=== PATIENT | male | born 1960 | race Two or more races ===

== ENCOUNTER 2024-06-14 17:56 | Emergency (ER) | payer SELFPAY ==
[2024-06-14 18:23] VITALS: BP 171/90; PULSE 71; RESP 18; TEMP 37.1; O2SAT 95; BMI 25.1
--- NOTE | 2024-06-14 18:30 | XR_ITS ---
Examination: CT cervical spine without contrast 2-D sagittal reconstructions 2-D coronal reconstructions 3-D reconstructions. Exam date and time:June 14, 2024, 1915 hrs. Indications: Patient fell today with into the neck, neck pain CTDI:vol (mGy) 4.75 DLP: (mGycm) 152 Technique: Multiple 2 mm axial sections of the cervical spine have been obtained. The coronal and sagittal reconstructions have been obtained. 3-D reconstructions have been obtained. Low dose protocols were performed. One or more of the following dose reduction techniques were used; automated exposure control, adjustment of the mA and/or KV according to patient size, use of iterative reconstruction technique. Findings: Axial sections demonstrate intact base of the skull. C1 exhibit satisfactory relationship to the odontoid. No acute cervical vertebral body fracture seen. Alignment posterior spinous processes satisfactory. Impression: No acute cervical fracture.
--- NOTE | 2024-06-14 18:30 | XR_ITS ---
Examination: CT brain head without contrast. 2-D sagittal coronal reconstructions Date and time of exam:June 14, 2024 at 1915 hrs. Indications: Patient fell today with injury to the head, head pain CTDI: vol (mGy):48 DLP: (mGycm):970 Technique: Multiple CT axial sections of the brain have been obtained, 5 mm slice thickness. Contrast has not been administered. 2-D sagittal, coronal reconstructions have been obtained Low dose protocols were performed. One or more of the following dose reduction techniques were used; automated exposure control, adjustment of the mA and/or KV according to patient size, use of iterative reconstruction technique. Findings: No significant ventricular enlargement. Intra-axial or extra-axial hemorrhage density is not seen. No mass effect or midline shift Basal cisterns are not remarkable. Fourth ventricle is midline. Cranial vault intact. Impression: Negative for acute hemorrhage, mass effect or midline shift
--- NOTE | 2024-06-14 18:35 | PD.EDHEAD ---
ED Head Injury RME/HPI General Chief complaint: Wound/Laceration Stated complaint: LACERATION BACK OF HEAD Time Seen by Provider: 06/14/24 18:30 Arrival date/time: 06/14/24 17:56 63M with no significant PMH presents to ED with head lac after trip slip and fall in shower. Patient has been drinking, but denies N/V, vision changes, weakness, and slurred speech. Patient has not had a tetanus shot in the past 5 years. Limitations: no limitations Related Data Allergies Allergy/AdvReac Type Severity Reaction Status Date / Time No Known Allergies Allergy Verified 06/14/24 17:59 Review of Systems Review of Systems Systems Reviewed: All systems reviewed, normal except as documented Constitutional Constitutional: Reports system reviewed and no additional complaints, except as documented, Reports as per HPI, Denies fever(s) and Reports headache(s) (pain) ENT Ears, Nose, Mouth, and Throat: Denies disequilibrium and Reports headache(s) (pain) Cardiovascular Cardiovascular: Reports system reviewed and no additional complaints, except as documented, Denies chest pain and Denies dyspnea Respiratory Respiratory: Reports system reviewed and no additional complaints, except as documented, Denies cough and Denies dyspnea Gastrointestinal Gastrointestinal: Reports system reviewed and no additional complaints, except as documented, Denies abdominal pain, Denies nausea and Denies vomiting Integumentary/Breasts Skin/Breast: Reports as per HPI and Reports skin pain Neurologic Neurologic: Reports system reviewed and no additional complaints, except as documented, Denies confusion, Denies disequilibrium and Reports headache(s) (pain) Psychiatric Psychiatric: Denies confusion Past Medical History Social History SMOKING STATUS: Former smoker ED Exam General Limitations: Present no limitations General appearance: Present alert and in no apparent distress Expanded Head Exam Head exam physical: Present laceration (4 cm posterior scalp) Eye Eye exam: Present normal appearance, PERRL and EOMI ENT ENT exam: Present normal exam, normal oropharynx and mucous membranes moist Neck Neck exam: Present normal inspection, full ROM and trachea midline Chest Chest inspection: Present normal inspection and symmetric chest wall rise Respiratory Respiratory exam: Present normal lung sounds bilaterally Cardiovascular Cardiovascular exam: Present regular rate, normal rhythm and normal heart sounds Abdominal Exam Abdominal exam: Present soft and normal bowel sounds Extremities Exam Extremities exam: Present normal inspection and full ROM Back Exam Back exam: Present normal inspection and full ROM Neurological Exam Neurological exam: Present alert, oriented X3 and CN II-XII intact Psychiatric Psychiatric exam: Present normal affect and normal mood Skin Skin exam: Present warm, dry, intact and normal color Course Quality Measures none Orders Category Date Time Status Stapler to Beside ONCE Care 06/14/24 18:30 Completed Wound Care NOW Care 06/14/24 18:[address] cervical spine wo con Stat Exams 06/14/24 18:[address] head/brain wo con Stat Exams 06/14/24 18:30 Completed Tet,Diphth,Pertuss(Acell)-Tdap [Boostrix Vacc] Med 06/14/24 18:30 Discontinued 0.5 ml IMI .ONCE ONE Vital Signs Vital signs: Vital Signs Temperature 98.7 F 06/14/24 18:23 Pulse Rate 71 06/14/24 18:23 Respiratory Rate 18 06/14/24 18:23 Blood Pressure 171/90 H 06/14/24 18:23 Pulse Oximetry (%) 95 06/14/24 18:23 Oxygen Delivery Method Room Air 06/14/24 18:23 O2 at 95% on RA and WNLs Head Injury MDM Narrative MDM Narrative:: 63M with no significant PMH presents to ED with head lac after trip slip and fall in shower. Patient has been drinking, but denies N/V, vision changes, weakness, and slurred speech. Patient has not had a tetanus shot in the past 5 years. Physical exam reveals 4 cm lac posterior scalp. Normal pupil response and EOM. Mildly dilated. ENT clear. No neck tenderness. ROM intact. Gait intact. Patient is afebrile, calm, but mildly intoxicated. Wound cleaned/irrigated and closed with 12 agustin. Given counseling director to have them removed in about [address] unremarkable. Patient data External records reviewed:: None Clinical information provided by:: patient Social determinants that could affect healthcare access:: alcohol use Patient has the following chronic illnesses:: HTN How is presenting disease/condition affected by chronic disease/condition?: uneffected by Evaluation data The following diagnostics were reviewed and interpreted by me:: radiology exam(s) Lab and/or radiology exams considered but not ordered:: ordered Interpretation Summary: above Medications / Prescriptions Medications or Prescriptions considered but not ordered:: ordered Medication administrations:: Medication Administration History Discontinued Medications Diphtheria/Tetanus/Acell Pertussis (Diphth,Pertuss(Acell),Tet Vac 0.5 Ml Syr- Adult) 0.5 ml IMi .ONCE ONE Stop: 06/14/24 18:31 Last Admin: 06/14/24 20:25 Dose: 0.5 ml Documented By: KF above Consultations Consultation(s) initiated? (list below): No Diagnosis Differential diagnosis head injury: concussion without loss of consciousness, epidural hematoma, closed head injury, subarachnoid hematoma, postconcussion syndrome, subdural hematoma, concussion with loss of consciousness and other (cervical fx) Most likely diagnosis given after review of the tests above:: laceration and CHI Admission Indicated Admission indicated?: not indicated Admission Request Was there a request for admission?: No Disposition Plan Disposition Plan: Discharge Discharge Attestation Discharge Attestation: The patient and all family members were given an opportunity to ask questions and understood the discharge instructions. Discharge instructions specifically effects, indications for sooner follow up or return to the emergency department, and the expected course of current diagnosis. Patient condition: Stable Discharge Plan Plan Patient Disposition: HOME (Self Care) Disposition Comment: Stable Prescriptions/Referrals Referrals: No Primary/Family,Physician [Primary Care Provider] - In 1 week Problem List Clinical Impression: Laceration, CHI (closed head injury) Patient/Caregiver Discharge Instructions Education Materials: ED Laceration Scalp Sutures or ... Additional Instructions: Please follow-up with PCP within 24-48 hours and return immediately if symptoms worsen. Have stitches removed in about 10 days. No shampooing for 2 days. Print Language: Mohawk Stand Alone Forms: Patient Portal Info Letter JIGAR/JOSH Supervising Physician SHONDA Supervising Physician: Dr. Rowe
--- NOTE | 2024-06-14 20:05 | PRELIM_ITS ---
CT scan of the cervical spine without intravenous contrast (axial sections with sagittal and coronal reformats) June 14, 2024 1915 hours Clinical History: Fall; drunk No prior study is available for comparison. Findings: There is no fracture or traumatic subluxation. Degenerative changes are noted in the form of multilevel marginal osteophytes, decreased disc spaces and facet arthropathy. There are disc bulges at the C3-C4 and C4-C5 levels causing mild spinal canal stenosis and without neural foraminal stenosis. The prevertebral soft tissues are unremarkable. Impression: No evidence of fracture or traumatic subluxation. Disc bulges at the C3-C4 and C4-C5 levels causing mild spinal canal stenosis and without neural foraminal stenosis. Recommend further evaluation with MRI, as clinically indicated. Report Electronically Signed By: Darin Carpenter 06/14/2024 8:05:10 PM [EST]
[2024-06-14] MEDS: DIPHTH,PERTUSS(ACELL),TET VAC 0.5 ML SYR- ADULT IMi (20:25)
--- NOTE | 2024-06-14 20:31 | PRELIM_ITS ---
CT scan of the head without intravenous contrast (axial sections with sagittal and coronal reformats) June 14, 2024 1915 hours Clinical History: Fall; drunk No prior study is available for comparison. Findings: There is no evidence of intracranial hemorrhage, mass effect or midline shift. There are periventricular white matter hypodensities, compatible with chronic small vessel ischemia. There is mild volume loss. The calvarium is intact. The mastoid air cells and the visualized paranasal sinuses are clear. There is a small soft tissue laceration in the left parietal scalp. Impression: No evidence of intracranial hemorrhage, midline shift or calvarial fracture. Periventricular chronic small vessel ischemia and volume loss. Small soft tissue laceration in the left parietal scalp . Report Electronically Signed By: Darin Carpenter 06/14/2024 8:31:22 PM [EST]
== END 2024-06-14 22:36 | disposition home or self-care (01) ==
PROVIDERS: Emergency Provider Emergency Medicine
DX: S01.01XA Laceration without foreign body of scalp, initial encounter (principal); W18.2XXA Fall in (into) shower or empty bathtub, initial encounter; Y93.E1 Activity, personal bathing and showering
CPT/HCPCS: 12002; 70450; 72125; 90471; 90715; 99284